=== PATIENT | female | born 2000 | race Caucasian/White ===

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

== ENCOUNTER 2024-08-22 10:31 | Emergency (ER) | payer BC ==
[2024-08-22 12:05] VITALS: BP 112/80; PULSE 77
== END 2024-08-22 11:57 | disposition home or self-care (01) ==
LOC: FB.ED 10:31
DX: R51.9 Headache, unspecified (principal); F07.81 Postconcussional syndrome; Z79.899 Other long term (current) drug therapy
CPT/HCPCS: 70450; 99284; A9270